=== PATIENT | male | born 1955 | race Caucasian/White ===

== ENCOUNTER 2020-08-19 10:38 | Day surgery (SDC) | payer MEDICARE ==
[~2020-08-19] VITALS: Ht 177.8 cm; Wt 100.0 kg
--- NOTE | ~2020-08-19 | HEMODYNAMI ---
PATIENT:JUAN M ALEJANDRO MEDICAL RECORD: [id number] : 57 [facility] [id number] ADMISSION DATE: 08/19/20 Generatedon:08/19/202016:30 Patient name: JUAN M ALEJANDRO Patient #: [id number] SSN: : 1955 Date of study: 08/19/2020 Page: Of Hemodynamic Procedure Report Patient Data Patient Demographics Procedure consent was obtained First Name: JUAN M Gender: Male Last Name: FLAVIA : 1955 Middle Initial: MIKE Age: 64 year(s) Patient #: [id number] Race: Unknown Additional ID: [id number] Contact details [address]: [address] [place] [address] State: [place] City: [place] Zip code: [address] Admission Admission Data Admission Date: 08/19/2020 Admission Time: 10:38 Procedure Procedure Types Cath Procedure Peripheral Cath Diagnostic Procedure Abd/Extremity Extremities Procedure Description Procedure Date Procedure Date: 08/19/2020 Procedure Start Time: 13:43 Procedure Staff Name Function Dayne Gomez MD Performing Physician Santy Ashraf RT Monitor ELIO COMBS RT Scrub Itzel Pineda CRNA Additional personnel Naomy BENAVIDEZ RN Nurse Nat East RN Nurse Procedure Data Cath Procedure Fluoroscopy Diagnostic fluoroscopy Total fluoroscopy Time: time: 21.9 min 21.9 min Diagnostic fluoroscopy Total fluoroscopy dose: 481 dose: 481 mGy mGy Contrast Material Contrast Material Type Amount (ml) Isovue 300 140 Procedure Medications Medication Administration Route Dosage Heparin Flush Bag added to field 3 bags (1000units/500ml NS) Lidocaine 1% added to field 20 Heparin Bolus I.V. 5000 units Refer to Anesthesia Notes for Sedation Medications Radial Cocktail added to field 1 syringe (Verapamil 2mg/Nitro 400mcg/Heparin 1500units) Nitroglycerin IC/IA I.A. 300 mcg Heparin Bolus I.V. 1000 units Hemodynamics Rest Pre Cath Intra NCS Post Cath Medications Time Medication Route Dose Verified Delivered Reason Notes Ef fectiveness by by 14:28:26 Heparin Flush added 3 bags Dayne Oscar used for Bag to Patricia Gomez MD procedure (1000units/500ml field AMADOR NS) 14:28:36 Lidocaine 1% added 20ml Dayne Oscar for local to vial Patricia Gomez MD anesthetic field AMADOR 14:28:51 Heparin Bolus I.V. 5000 Dayne Johns Per units Cruzito Gomez RN physician 14:29:04 Refer to Dayne Johns Anesthesia Notes Cruzito Gomez RN for Sedation MD Medications 14:38:52 Radial Cocktail added 1 Dayne Oscar (Verapamil to syringe Patricia Gomez MD 2mg/Nitro field AMADOR 400mcg/Heparin 1500units) 15:21:24 Nitroglycerin I.A. 300 mcg Dayne Osacr IC/IA Patricia Gomez MD MD 15:21:36 Heparin Bolus I.V. 1000 Dayne Johns Per units Cruzito Gomez RN physician Procedure Log Time Note 13:07:55 Itzel Pineda CRNA present and monitoring patient for TIVA. 13:08:11 Naomy BENAVIDEZ RN sent for patient. Start room use. 13:08:13 Time tracking: Regular hours (M-F 7:00 - 5:00) 13:08:18 Plan of Care:Hemodynamics will remain stable., Cardiac rhythm will remain stable., Comfort level will be maintained., Respiratory function will remain adequate., Patient/ family verbilizes understanding of procedure., Procedure tolerated without complication., Recovers from procedure without complications.. 13:08:23 Patient received from Outpatients to IR Alert and oriented. Tansferred to table in Supine position. 13:08:27 Signed procedure consent form obtained from patient. 13:08:28 Correct patient and procedure confirmed by team. 13:08:28 ECG and BP/O2 sat monitors applied to patient. 13:08:30 Full Disclosure recording started 13:08:31 - 13:08:59 SEE ANESTHESIA NOTE FOR PRE PROCEDURE ANESTHESIA 13:09:00 - 13:09:14 H&P Date Dictated: 08/19/2020 H&P Addendum completed by physician on day of procedure. (MUST COMPLETE FOR ALL OUTPATIENTS). 13:09:14 Pre-procedure instructions explained to patient. 13:09:15 Pre-op teaching completed and patient verbalized understanding. 13:09:25 Bilateral groins area was prepped with chlora-prep and draped in steril e fashion 13:09:33 Left Pedal was prepped with chlora-prep and draped in sterile fashion. 13:09:35 Sharps counted by scrub and verified by R.N. 13:09:35 Alarms reviewed by R. N. 13:10:01 Use device set IR Diagnostic 13:10:02 ACIST Syringe (27613) opened to sterile field. 13:10:03 ACIST Hand Control (24209) opened to sterile field. 13:10:03 ACIST Manifold (27310) opened to sterile field. 13:10:03 Bag Decanter (2002S) opened to sterile field. 13:10:04 Sterile Angiographic Pack opened to sterile field. 13:10:22 Tegaderm 4 x 4 (1626W) opened to sterile field. 13:42:14 3b) 30-44 Moderately reduced kidney function. 13:42:35 Maximum allowable contrast dose (3.7 X eGFR X 0.75)113.77 ml. 13:42:37 Physician arrived 13:42:38 --------ALL STOP TIME OUT------ 13:42:38 Final Timeout: patient, procedure, and site verified with staff and physician. All members of the team are in agreement. 13:42:40 Bilateral groins site verified by team. 13:42:44 Fire Safety Assessment: A--An alcohol-based skin anteseptic being used preoperatively., C--Open oxygen or nitrous oxide is being used. 13:42:50 Sedation plan: General Anesthesia Medication:General Anesthesia 13:43:18 Procedure started. 13:43:26 Local anesthetic to right femoral artery with Lidocaine 1% by Dayne Gomez MD.INITIAL ACCESS ONLY 14:13:44 Micropuncture VSI 4FR kit opened to sterile field. 14:13:44 DOC .035 wire (Y63849) opened to sterile field. 14:13:44 Angiodynamics Omniflush 5Fr 65cm (37059601) opened to sterile field. 14:13:45 SHEATH 5FR Spencer (QOB196) opened to sterile field. 14:13:45 TUBING Contrast Injection High Pressure (OUD972V) opened to sterile field. 14:13:46 AMPLATZ Super Stiff 75cm wire ([id number]) opened to sterile field. 14:13:46 GLIDE WIRE ANGLE 260cm (ST3443) opened to sterile field. 14:13:46 GLIDE CATHETER 5FR ANGLED 65cm (CG507) opened to sterile field. 14:13:49 SHEATH 6FR Destination (RSR01) opened to sterile field. 14:14:35 HEADLEY 180cm wire (K11744) opened to sterile field. 14:20:21 AMPLATZ Super stiff 180cm wire ([id number]) opened to sterile field. 14:20:21 SHEATH 6FR Spencer (ORL888) opened to sterile field. 14:21:29 SHEATH 6FR X 25CM RADIOPAUQE PINNICALE (XKS292) opened to sterile field . 14:23:59 CXI Catheter 90cm (V47186) opened to sterile field. 14:28:26 Heparin Flush Bag (1000units/500ml NS) 3 bags added to field was administered by Dayne Gomez MD; used for procedure; Verbal order read back and verified. 14:28:36 Lidocaine 1% 20ml vial added to field was administered by Dayne Gomez MD; for local anesthetic; Verbal order read back and verified. 14:28:44 CHOICE PT Extra Support J 300cm guide wire ([id number]) opened to steril e field. 14:28:44 INFLATOR BasixTOUCH (XU3925) opened to sterile field. 14:28:51 Heparin Bolus 5000 units I.V. was administered by Nat East RN; Per physician; Verbal order read back and verified. 14:29:04 Refer to Anesthesia Notes for Sedation Medications was administered by Nat East RN; ; Verbal order read back and verified. 14:31:32 Inflate balloon Inflation number: 1 A NANOCROSS ELITE 3 X 60 ([id number] was prepped and advanced across the Undefined1 , then inflated to 9 EDGAR for 0:03 (min:sec) . 14:33:39 Hawkone Medium Atherectomy System (H1-M) opened to sterile field. 14:38:52 Radial Cocktail (Verapamil 2mg/Nitro 400mcg/Heparin 1500units) 1 syring e added to field was administered by Dayne Gomez MD; ; Verbal order read back and verified. 14:51:49 Inflate balloon Inflation number: 2 A IN.PACT Admiral 5 x 80 x 130 DCB Balloon ([id number]) was prepped and advanced across the Undefined1 , then inflated to 8 EDGAR for 2:37 (min:sec) . 15:03:55 Inflate balloon Inflation number: 3 A HOCOLATE 5.0 x 80 x 120 balloon ([id number]) was prepped and advanced across the Undefined1 , then inflated to 9 EDGAR for 1:53 (min:sec) . 15:07:13 Inflate balloon Inflation number: 4 A NANOCROSS ELITE 3 X 120 ([id number]) was prepped and advanced across the Undefined1 , then inflated to 14 EDGAR for 0:04 (min:sec) . 15:14:00 CHOICE PT Extra Support J 300cm guide wire ([id number]) opened to steril e field. 15:15:54 Inflate balloon Inflation number: 5 A NANOCROSS ELITE 3 X 150 ([id number]) was prepped and advanced across the Undefined1 , then inflated to 8 EDGAR for 0:01 (min:sec) . 15:21:24 Nitroglycerin IC/IA 300 mcg I.A. was administered by Dayne Gomez MD; ; Verbal order read back and verified. 15:21:36 Heparin Bolus 1000 units I.V. was administered by Nat East RN; Per physician; Verbal order read back and verified. 15:28:56 Navicross Support Straight .035 150cm catheter (BJ69683) opened to sterile field. 15:31:01 GUIDEWIRE V-18 CONTROL ([id number]) opened to sterile field. 15:35:02 CXI SUPPORT .035 135 CM STR catheter (X60564) opened to sterile field. 15:41:40 Inflate balloon Inflation number: 6 A NANOCROSS ELITE 2.5MM-2 MM X 210 X 150 ([id number]) was prepped and advanced across the Undefined1 , then inflated to 14 EDGAR for 0:40 (min:sec) . 16:06:29 EVERFLEX 6 x 60 x 120 Stent ([id number]) was deployed across Undefined1 . 16:06:53 STENT WITHIN EXPIRATION CHECKED BEFORE OPENING WITH STAFF 16:11:01 Inflate balloon Inflation number: 7 A NANOCROSS ELITE 6 X 60 ([id number] was prepped and advanced across the Undefined1 , then inflated to 14 EDGAR for 0:07 (min:sec) . 16:21:11 EXOSEAL 6Fr (EX600) opened to sterile field. 16:22:51 Procedure ended.(Physican Out) 16:23:02 Fluoroscopy time 21.90 minutes. 16:23:11 Fluoroscopy dose: 481 mGy 16:23:11 Flurop Dose total: 481 16:24:36 Insertion/operative site no bleeding no hematoma. 16:24:40 Post-op/insertion site Left Femoral artery dressed using a 4 x 4 and Tegaderm. 16:24:45 Post left femerol artery:stable 16:25:08 SEE ANESTHESIA NOTE FOR POST PROCEDURE ANESTHESIA 16:25:34 Contrast amount:Isovue 300 140ml. 16:25:39 Maximum allowable dose exceeded? Yes. 16:29:53 Report given to Recovery Room. 16:29:57 Patient transfered to Recovery Room with Stretcher. Intervention Summary Intervention Notes Time ActionType Lesion and Equipment Used Action# Pressure Duration Attributes 14:31:32 Inflate Undefined1 NANOCROSS ELITE 2 1 9 00:03 balloon X 60 ([id number] 14:51:49 Inflate Undefined1 IN.PACT Admiral 5 2 8 02:37 balloon x 80 x 130 DCB Balloon ([id number]) 15:03:55 Inflate Undefined1 HOCOLATE 5.0 x 80 3 9 01:53 balloon x 120 balloon ([id number]) 15:07:13 Inflate Undefined1 NANOCROSS ELITE 3 4 14 00:04 balloon X 120 ([id number]) 15:15:54 Inflate Undefined1 NANOCROSS ELITE 3 5 8 00:01 balloon X 150 ([id number]) 15:41:40 Inflate Undefined1 NANOCROSS ELITE 6 14 00:40 balloon 2.5MM-2 MM X 210 X 150 ([id number]) 16:06:29 Deploy self Undefined1 EVERFLEX 6 x 60 x 1 expanding 120 Stent stent ([id number]) 16:11:01 Inflate Undefined1 NANOCROSS ELITE 2 7 14 00:07 balloon X 60 ([id number] Device Usage Item Name Manufacture Quantity Catalog Number [facility] Part Cur rent Minimal Lot# / Charge Number Stock Stock Serial# Code ACIST Syringe Acist Medical 1 29046 093562 444290 985 456 20 (29621) Systems Inc ACIST Hand Acist Medical 1 19093 621911 209948 985 887 5 Control (82300) Systems Inc ACIST Manifold Acist Medical 1 53487 174453 948934 985 903 5 (02181) Systems Inc Bag Decanter Microtek 1 2001S 162579 32942 983 745 5 (2001S) Medical Inc. Sterile Cardinal 1 [id number] 350100 997 728 5 Angiographic Pack Health Tegaderm 4 x 4 3M 1 1626W 091048 479806 989 622 5 (1626W) Micropuncture VSI VSI VASCULAR 1 7266V 890106 999 120 5 4FR kit SOLUTIONS DOC .035 wire Cook Medical 1 Q31737 027017 999 313 5 (X26771) Angiodynamics Angiodynamics 1 37410899 129854 662351 999 872 5 Omniflush 5Fr 65cm (90424970) SHEATH 5FR Terumo 1 RCG335 267704 385729 993 565 5 Spencer (TPP730) TUBING Contrast [facility] Medical 1 LYH930W 864242 485896 999 284 5 Injection High Pressure (ATH300H) AMPLATZ Super [place] 1 [id number] 595780 216862 999 814 5 [id number] Stiff 75cm wire Scientific ([id number]) GLIDE WIRE ANGLE Terumo 1 XH8064 718979 638749 999 344 5 260cm (FM1799) GLIDE CATHETER Terumo 1 CG507 570321 999 575 5 5FR ANGLED 65cm (CG507) SHEATH 6FR Terumo 1 RSR01 656095 81766 999 466 5 Destination (RSR01) HEADLEY 180cm wire Cook Medical 1 X97670 229207 999 892 5 (N89058) AMPLATZ Super [place] 1 [id number] 909492 831449 999 855 5 stiff 180cm wire Scientific ([id number]) SHEATH 6FR Terumo 1 VSG566 930428 141586 994 597 40 Spencer (UUJ260) SHEATH 6FR X 25CM Terumo 1 BFX403 320765 550434 999 993 1 RADIOPAUQE PINNICALE (CII882) CXI Catheter 90cm Sandata 1 A58885 044683 061812 999 865 5 [id number] (A84112) CHOICE PT Extra [place] 2 [id number] 239794 464650 998 758 5 [id number] Support J 300cm Scientific [id number] guide wire (8688519G7) INFLATOR [facility] Solidia Technologies 1 KW3184 769295 174020 999 572 5 BasixTOUCH (NZ4865) NANOCROSS ELITE 2 Medtronic 2 [id number] 751314 10039 999 994 1 X 60 ([id number] Hawkone Medium Medtronic 1 H1-M 939485 999 13414 5 [id number] Atherectomy System (H1-M) IN.PACT Admiral 5 Medtronic 1 [id number] 350388 903848 999 980 5 [id number] x 80 x 130 DCB Balloon ([id number]) CHOCOLATE 5.0 x Medtronic 1 [id number] O 225594 02394 999 992 5 80 x 120 balloon TW ([id number]) NANOCROSS ELITE 3 Medtronic 1 [id number] 938502 993540 999 996 1 [id number] X 120 ([id number]) NANOCROSS ELITE 3 Medtronic 1 [id number] 729191 77158 999 992 1 X 150 ([id number]) Navicross Support Terumo 1 FR75402 935520 188298 999 972 5 Straight .035 150cm catheter (PR62880) GUIDEWIRE V-18 [place] 1 366126 217962 999 993 1 [id number] CONTROL Scientific ([id number]) CXI SUPPORT .035 Cook Medical 1 T23491 213270 509750 999 746 5 96945249 135 CM STR catheter (T08561) NANOCROSS ELITE Medtronic 1 [id number] 386822 999 984 1 2.5MM-2 MM X 210 X 150 ([id number]) EVERFLEX 6 x 60 x Medtronic 1 [id number] 150669 042522 999 989 5 [id number] 120 Stent P145864 ([id number]) EXOSEAL 6Fr Cardinal 1 EX600 450476 189316 995 662 10 30840078 (EX600) Health Signature Audit [place] Stage Time Signature Unsigned Intra-Procedure 08/19/2020 Santy 4:30:20 PM [place] RT (R) (CV) [facility] [address] [place] [address]
[2020-08-19 10:56] LABS: BASOPHILS 0.5 % (0-2); EOSINOPHILS 4.4 % (0-7); HEMATOCRIT 42.6 % (42.0-54.0); HEMOGLOBIN 14.8 g/dL (13.5-17.5); IMMATURE GRANULOCYTES 0.1 % (0-5); LYMPHOCYTES 34.7 % (15-50); MCH 30.9 pg (26.0-34.0); MCHC 34.7 g/dL (31.0-37.0); MCV 88.9 fL (80.0-100.0); MEAN PLATELET VOLUME 9.9 fL (7.4-10.4); MONOCYTES 7.2 % (2-11); NEUTROPHILS 53.1 % (40-80); PLATELET COUNT 234 10x3/uL (130-400); RBC 4.79 10x6/uL (4.20-6.10); RDW 13.5 % (11.5-14.5); WBC 9.2 10x3/uL (4.8-10.8)
[2020-08-19 11:06] LABS: ANION GAP 13.2 mmol/L (8-16); CALCIUM 9.1 mg/dL (8.5-10.1); CARBON DIOXIDE 25.9 mmol/L (21.0-32.0); CREATININE - SERUM 1.8 mg/dL (0.6-1.3); POTASSIUM - SERUM 4.1 mmol/L (3.5-5.1)
[2020-08-19] MEDS ORDERED: NEURONTIN800 MG PO (11:21)
[2020-08-19] MEDS ORDERED: LIPITOR20 MG PO (11:22)
[2020-08-19] MEDS ORDERED: BAYER CHEWABLE81 MG PO (11:22)
[2020-08-19] MEDS ORDERED: HYDROCODON-ACE1 EA10 PO (11:24)
[2020-08-19 11:28] LABS: INR 1.03 (0.85-1.17); PROTIME 13.5 SECONDS (11.6-15.0)
[2020-08-19 11:29] LABS: APTT 39.4 SECONDS (22.8-39.4)
[2020-08-19 11:40] VITALS: BP 151/80; Ht 177.8 cm; Wt 100.0 kg
--- NOTE | 2020-08-19 17:22 | NUR ---
1722 SEE POST PROCEDURE CHECKLIST FOR VITAL SIGN TRENDS.
--- NOTE | 2020-08-19 17:40 | NUR ---
1735 HOB AT 30 DEGREES, ICE PACKS TO JOSEPH SOFT GROINS, CDI. EATING FINGER FOOD AHA DIET. DRINKING LIQUIDS.
--- NOTE | 2020-08-19 18:46 | NUR ---
184 HAS RETURNED TO ROOM, I REPORTED TO HER WHAT DR. DENG REPORTED TO HER SPOUSE. BED LOWERED FOR COMFORT FOR PT AND LIGHTS OUT FOR PT. FOR COMFORT. PT. WISHES TO NAP.
== END 2020-08-19 19:50 | disposition home or self-care (01) ==
LOC: D.SP 10:38 → D.RAD 13:00 → D.SP 13:00
PROVIDERS: ATTEND General Practice
DX: I70.203 Unspecified atherosclerosis of native arteries of extremities, bilateral legs (principal)

== ENCOUNTER → 2021-04-09 12:55 | Outpatient (CLI) | payer MEDICARE ==
[2020-08-19 11:40] VITALS: BMI 31.6
[~2021-04-09 12:55] MED LIST: BAYER CHEWABLE81 MG PO; HYDROCODON-ACE1 EA10 PO; LIPITOR20 MG PO; NEURONTIN800 MG PO
== END | disposition home or self-care (01) ==
LOC: D.CT 12:55
PROVIDERS: ATTEND General Practice
DX: I70.213 Atherosclerosis of native arteries of extremities with intermittent claudication, bilateral legs (principal)

== ENCOUNTER → 2021-04-18 10:30 | Day surgery (SDC) | payer MEDICARE ==
[~2021-04-18] VITALS: Ht 177.8 cm; Wt 106.8 kg
[~2021-04-18 10:30] MED LIST changes: +GLIMEPIRIDE2 MG PO
[2021-04-18 10:50] LABS: BASOPHILS 0.6 % (0-2); EOSINOPHILS 3.3 % (0-7); HEMATOCRIT 41.7 % (42.0-54.0); HEMOGLOBIN 14.1 g/dL (13.5-17.5); LYMPHOCYTES 34.9 % (15-50); MCH 30.1 pg (26.0-34.0); MCHC 33.9 g/dL (31.0-37.0); MCV 88.8 fL (80.0-100.0); MEAN PLATELET VOLUME 8.8 fL (7.4-10.4); MONOCYTES 5.6 % (2-11); NEUTROPHILS 55.6 % (40-80); PLATELET COUNT 228 10x3/uL (130-400); RDW 13.8 % (11.5-14.5); WBC 9.5 10x3/uL (4.8-10.8)
[2021-04-18 10:54] LABS: ANION GAP 10.4 mmol/L (8-16); CALCIUM 9.1 mg/dL (8.5-10.1); CARBON DIOXIDE 28.6 mmol/L (21.0-32.0); CREATININE - SERUM 1.4 mg/dL (0.6-1.3); INR 1.08 (0.85-1.17); PROTIME 12.9 SECONDS (11.6-15.0)
[2021-04-18 10:55] LABS: APTT 33.3 SECONDS (22.8-39.4)
[2021-04-18 11:25] VITALS: BP 140/82; Ht 177.8 cm; Wt 106.8 kg
== END | disposition home or self-care (01) ==
LOC: D.SP 10:30 → D.RAD 13:00 → D.SP 13:00 → D.RAD 14:00 → D.SP 14:00
PROVIDERS: ATTEND General Practice
DX: R79.89 Other specified abnormal findings of blood chemistry (principal); I73.9 Peripheral vascular disease, unspecified; Z53.9 Procedure and treatment not carried out, unspecified reason

== ENCOUNTER → 2021-04-23 10:07 | Outpatient (CLI) | payer MEDICARE ==
[2021-04-18 11:25] VITALS: BMI 33.7
== END | disposition home or self-care (01) ==
LOC: D.HCCARDIO 10:07
PROVIDERS: ATTEND Internal Medicine Cardiovascular Disease
DX: R07.9 Chest pain, unspecified (principal)

== ENCOUNTER 2021-05-01 06:34 | Day surgery (SDC) | payer MEDICARE ==
[~2021-05-01] VITALS: Ht 177.8 cm; Wt 106.7 kg
--- NOTE | ~2021-05-01 | HP ---
PATIENT: JUAN M ALEJANDRO MEDICAL RECORD: [id number] ACCOUNT: [id number] LOCATION:[facility] : 57 ADMISSION DATE: 05/01/21 PCP: EZRA SEGUNDO DO HISTORY AND PHYSICAL EXAMINATION HISTORY OF PRESENT ILLNESS: A 65-year-old gentleman with history of hypertension, hyperlipidemia, angina, presented with anginal symptomology, underwent Cardiolite stress testing. This showed a large previous defect as well as reversibility along the lateral wall. EF was decreased as well. He was brought to the warehouse general laborer for further delineation of anatomy. PAST MEDICAL HISTORY: 1. History of hypertension. 2. Hyperlipidemia. 3. Diabetes mellitus. PHYSICAL EXAMINATION: GENERAL: Pleasant. No acute distress, appeared stated age. HEENT: Normocephalic, atraumatic. NECK: No JVD, no carotid bruit. CARDIOVASCULAR: Heart is regular. LUNGS: Castellanos clear. EXTREMITIES: Pulses 2+ with no edema. IMPRESSION: High risk anatomy via noninvasive studies. PLAN: For angiography and intervention based on the above. TRANSINT:[id number] Voice Confirmation ID: [id number] DOCUMENT ID: [id number] ANDREAS HODGE MD CC: [id number] DICTATION DATE: 05/01/21805 CRAS: 05/01/21 0827 [facility] [address] [place] [id number]
--- NOTE | ~2021-05-01 | OP ---
PATIENT NAME: JUAN M ALEJANDRO MEDICAL RECORD: [id number] :57 LOCATION:D.CAT ADMISSION DATE: SURGEON: ANDREAS HODGE MD DATE OF OPERATION: 05/01/2021 PROCEDURE PERFORMED: Left heart catheterization, selective coronary angiography, right femoral artery approach. CATHETERS: A 5-German sheath, 5/4 left and right Zac, 5/4 pig. The procedure was well tolerated. The patient was returned to the [facility]. Sheath removed. TR band was placed. FINDINGS: Left ventriculography in 30-degree LIM view shows a marked lateral hypokinesis. Overall function reduced at 30% to 35%. CORONARY ANATOMY: Left main: Left main is free of disease. LAD: Has a diffuse stenosis of about 90% in its mid portion. Circumflex: Totally occluded, fills well via left to right collaterals. Right coronary artery: Totally occluded, fills well via left to right collaterals. IMPRESSION: Decreased left ventricular systolic function. Severe 3-vessel disease. Circ and right are fair targets. We will discuss with Dr. Chong. We will start on myopathic medications, best route for revascularization. Further recommendations based on the above. TRANSINT:[id number] Voice Confirmation ID: [id number] DOCUMENT ID: [id number] ANDREAS HODGE MD CC: [id number] DICTATION DATE: 05/01/21827 REAL PROPERTY EVALUATOR: 05/01/21 0941 [facility] [address] [place] [address]
--- NOTE | ~2021-05-01 | HEMODYNAMI ---
PATIENT:JUAN M ALEJANDRO MEDICAL RECORD: [id number] : 57 LOCATION:[facility] ADMISSION DATE: 05/01/21 Generatedon:18:29 Patient name: JUAN M ALEJANDRO Patient #: [id number] SSN: : 1955 Date of study: 05/01/2021 Page: Of Hemodynamic Procedure Report Patient Data Patient Demographics Procedure consent was obtained First Name: JUAN M Gender: Male Last Name: FLAVIA : 1955 Middle Initial: MIKE Age: 65 year(s) Patient #: [id number] Race: Unknown Additional ID: [id number] Contact details Address: [address] [place] [address] State: [place] City: [place] Zip code: [address] Admission Admission Data Admission Date: 05/01/2021 Admission Time: 6:34 Admit Source: Other Height (in.): 69.69 BSA: 2.22 (m2) Height (cm.): 177 BMI: 33.83 (kg/m2) Weight (lbs.): 233.69 Weight (kg.): 106 Current Diagnosis Diagnosis Description Stable angina Lab Results Lab Result Date: 05/01/2021 Lab Result Time: 0:00 Biochemistry Name Units Result Min Max BUN mg/dl 14 --(--*-)-- 7 18 Creatinine mg/dl 1.3 --(---*)-- 0.6 1.3 CBC Name Units Result Min Max Hemoglobin g/dl 14.6 --(-*--)-- 13.5 17.5 Procedure Procedure Types Cath Procedure Diagnostic Procedure LHC LHC w/Coronaries Procedure Description Procedure Date Procedure Date: 05/01/2021 Procedure Start Time: 8:13 Procedure End Time: 8:26 Procedure Staff Name Function Daniel Woodson MD Performing Physician Best Hernandez RN Nurse Domenic Cobb RN Nurse Sandy Donaldson RT Scrub Johnny Sutton RT Monitor Procedure Data Cath Procedure Fluoroscopy Diagnostic fluoroscopy Total fluoroscopy Time: 3.3 time: 3.3 min min Diagnostic fluoroscopy Total fluoroscopy dose: 709 dose: 709 mGy mGy Contrast Material Contrast Material Type Amount (ml) Isovue 370 73 Entry Location Entry Primary Successful Side Size Upsize Upsize Entry Closure Murphy ccessful Closure Location (Fr) 1 (Fr) 2 (Fr) Remarks Device Remarks Radial Right 6 Fr Mechanical artery Short Compression Estimated blood loss: 5 ml Diagnostic catheters Device Type Used For End Catheter Placement DIAGNOSTIC [place] 110cm 5 LV Angiography Fr catheter ([id number]) DIAGNOSTIC AR MOD 5Fr Right Coronary Catheter ([id number]) Angiography Procedure Complications No complications Procedure Medications Medication Administration Route Dosage Oxygen etCO2 Nasal cannula 2 l/min Lidocaine 2% added to field 20 Heparin Flush Bag added to field 2 bags (1000units/500ml NS) 0.9% NaCl I.V. 100 ml/hr Radial Cocktail added to field 1 syringe (Verapamil 2mg/Nitro 400mcg/Heparin 1500units) Versed I.V. 1 mg Fentanyl I.V. 50 mcg Versed I.V. 0.5 mg Fentanyl I.V. 25 mcg Hemodynamics Rest BSA: 2.22 (m2) HGB: 14.6 (g/dl) O2 Consumption: Estimated: 262.11 (ml/min) O2 Co nsumption indexed: Estimated:118.07 (ml/min/m) Heart Rate: 73 (bpm) Pressure Samples Time Site Value (mmHg) Purpose Heart Use Rate(bpm) 8:15 LV 155/18,18 EDP 78 Gradients Valve Time Site Site Mean SEP/DFP Peak To Heart Use 1 2 (mmHg) (sec/min) Peak Rate (mmHg) (bpm) Aortic 8:16 LV AO 83 Snapshots Pre Cath Intra NCS Post Cath Vital Signs Time Heart Resp SPO2 etCO2 NIBP (mmHg) Rhythm Pain Sedation Rate (ipm) (%) (mmHg) Status Level (bpm) 7:59:13 75 16 100 27 175/95(140) NSR 0 (11) 10(A) , No pain 8:03:39 74 18 100 29.2 169/103(140) NSR 0 (11) 10(A) , No pain 8:08:01 75 18 96 0 155/93(128) NSR 0 (11) 10(A) , No pain 8:12:19 78 19 95 14.2 151/93(122) NSR 0 (11) 10(A) , No pain 8:16:29 83 20 93 0.7 125/82(104) NSR 0 (11) 9(A) , No pain 8:20:41 88 20 92 27.7 130/83(102) NSR 0 (11) 9(A) , No pain 8:24:55 82 20 93 9.7 130/84(102) NSR 0 (11) 10(A) , No pain Medications Time Medication Route Dose Verified Delivered Reason Notes Effectiveness by by 7:58:27 Oxygen etCO2 2 l/min Daniel Domenic used for Nasal [facility] Dayne Cobb RN procedure cannula 7:58:34 Lidocaine 2% added 20ml Daniel Daniel for local to vial [facility] anesthetic field MD AMADOR 7:58:41 Heparin Flush added 2 bags Daniel Daniel used for Bag to [facility] procedure (1000units/500ml field MD AMADOR NS) 7:58:51 0.9% NaCl I.V. 100 Daniel Domenic Per ml/hr [facility] Dayne Cobb RN physician 7:59:22 Radial Cocktail added 1 Daniel Daniel for (Verapamil to syringe [facility] vasodilation 2mg/Nitro field MD AMADOR 400mcg/Heparin 1500units) 8:07:53 Versed I.V. 1 mg Daniel Domenic for sedation [facility] Dayne Cobb RN, MD 8:07:59 Fentanyl I.V. 50 mcg Daniel Domenic for sedation [facility] Dayne Cobb RN, MD 8:13:03 Versed I.V. 0.5 mg Daniel Domenic for sedation [facility] Dayne Cobb RN, MD 8:13:08 Fentanyl I.V. 25 mcg Daniel Domenic for sedation [facility] Dayne Cobb RN, MD Procedure Log Time Note 7:42:25 Admit Source: Other 7:49:29 Best Hernandez RN sent for patient. Start room use. 7:50:59 Risk of Mortality: .1% 7:57:38 Time tracking: Regular hours (M-F 7:00 - 5:00) 7:57:41 Plan of Care:Hemodynamics will remain stable., Cardiac rhythm will remain stable., Comfort level will be maintained., Respiratory function will remain adequate., Patient/ family verbilizes understanding of procedure., Procedure tolerated without complication., Recovers from procedure without complications.. 7:57:45 Patient received from Pre/Post Procedure Room to CCL 1 Alert and oriented. Tansferred to table in Supine position. 7:57:46 Warm blankets applied, and jamilah hugger turned on for patient comfort. 7:57:47 Signed procedure consent form obtained from patient. 7:57:54 Correct patient and procedure confirmed by team. 7:57:54 ECG and BP/O2 sat monitors applied to patient. 7:57:55 Vital chart was started 7:57:57 Rhythm: sinus rhythm 7:58:00 Full Disclosure recording started 7:58:27 Oxygen 2 l/min etCO2 Nasal cannula was administered by Domenic Cobb RN; used for procedure; Verbal order read back and verified. 7:58:34 Lidocaine 2% 20ml vial added to field was administered by Daniel Woodson MD; for local anesthetic; Verbal order read back and verified. 7:58:41 Heparin Flush Bag (1000units/500ml NS) 2 bags added to field was administered by Daniel Woodson MD; used for procedure; Verbal order read back and verified. 7:58:51 0.9% NaCl 100 ml/hr I.V. was administered by Domenic Cobb RN; Per physician; Verbal order read back and verified. 7:59:22 Radial Cocktail (Verapamil 2mg/Nitro 400mcg/Heparin 1500units) 1 syringe added to field was administered by Daniel Woodson MD; for vasodilation; Verbal order read back and verified. 8:04:28 Baseline sample Acquired. 8:04:36 H&P Date Dictated: 05/01/2021 H&P Addendum completed by physician on day of procedure. (MUST COMPLETE FOR ALL OUTPATIENTS). 8:04:37 Pre-procedure instructions explained to patient. 8:04:37 Pre-op teaching completed and patient verbalized understanding. 8:04:39 Family in patients room. 8:04:41 Patient NPO since Midnight. 8:04:58 Is the patient allergic to Iodine/contrast media? No. 8:05:01 Was the patient premedicated? No 8:05:02 Is patient on blood thinner?Yes 8:05:32 Patient diabetic? Yes. 8:05:33 If diabetic: On Metformin? Yes 8:05:35 ----Pre-sedation anethsthesia assessment.---- 8:05:38 Previous problem with sedation/anesthesia? No ? 8:05:39 Snore? Yes 8:05:41 Sleep apnea? No 8:05:42 Deviated septum? No 8:05:50 Opens mouth fully? Yes 8:05:52 Sticks out tongue? Yes 8:05:54 Airway obstruction? No ? 8:05:57 Dentures? No ? 8:06:07 Pre procedure: left dorsailis pedis pulse 1+ Palpable, but thready & weak; easily obliterated 8:06:15 Pre procedure: right radial pulse 2+ Normal; easily identifiable; not easily obliterated 8:06:19 Modified Bull's test Ulnar < 7 seconds 8:06:21 Patient pain scale 0/10 ?. 8:06:28 IV patent on arrival in left antecubital with 0.9% NaCl at [facility]. 8:07:06 Lab Result : BUN 14 mg/dl 8:07:06 Lab Result : Creatinine 1.3 mg/dl 8:07:06 Lab Result : Hemoglobin 14.6 g/dl 8:07:13 Risk of blood transfusion: 0.4 8:07:18 Risk of BRI: 0.8 8:07:23 Right Radial & Left Groin area was prepped with chlora-prep and draped in sterile fashion 8:07:28 Alarms reviewed by R. N. 8:07:28 Sharps counted by scrub and verified by R.N. 8:07:30 Physician arrived 8:07:31 --------ALL STOP TIME OUT------ 8:07:32 Final Timeout: patient, procedure, and site verified with staff and physician. All members of the team are in agreement. 8:07:34 Right Radial & Left Groin site verified by team. 8:07:39 Fire Safety Assessment: A--An alcohol-based skin anteseptic being used preoperatively., B--The operative or invasive procedure is being performed above the xiphoid process or in the oropharynx., C--Open oxygen or nitrous oxide is being used., D--An ESU, laser, or fiber-optic light is being used., E--There are other possible contributors. 8:07:43 Physical assessment completed. ASA score P 2 - A patient with mild systemic disease as per Daniel Woodson MD. 8:07:53 Versed 1 mg I.V. was administered by Domenic Cobb RN; for sedation; Verbal order read back and verified. 8:07:53 3a) 45-59 Moderately reduced kidney function. 8:07:59 Fentanyl 50 mcg I.V. was administered by Domenic Cobb RN; for sedation; Verbal order read back and verified. 8:08:12 Maximum allowable contrast dose (3.7 X eGFR X 0.75)163 ml. 8:08:18 Sedation plan: IV Moderate Sedation Medication:Versed, Fentanyl 8:08:25 Use device set Radial Dx or PCI 8:08:28 ACIST Syringe (69774) opened to sterile field. 8:08:29 Medline Cath Pack ([id number]) opened to sterile field. 8:08:29 Bag Decanter (2002S) opened to sterile field. 8:08:30 ACIST Hand Control (61514) opened to sterile field. 8:08:30 ACIST Manifold (54810) opened to sterile field. 8:08:31 Tegaderm 4 x 4 (1626W) opened to sterile field. 8:08:32 MBrace Wrist Support ([id number]) opened to sterile field. 8:08:35 EMERALD Guide Wire (551-118) opened to sterile field. 8:08:38 SHEATH 6FR RAIN ([id number]) opened to sterile field. 8:13:03 Versed 0.5 mg I.V. was administered by Domenic Cobb RN; for sedation; Verbal order read back and verified. 8:13:08 Fentanyl 25 mcg I.V. was administered by Domenic Cobb RN; for sedation; Verbal order read back and verified. 8:13:28 Procedure started. 8:13:35 Local anesthetic to right radial artery with Lidocaine 2% by Daniel Woodson MD.INITIAL ACCESS ONLY 8:13:49 A 6 Fr Short sheath was inserted into the Right Radial artery 8:14:00 Zero performed for pressure channel P1 8:14:28 A DIAGNOSTIC [place] 110cm 5 Fr catheter ([id number]) was advanced over the wire and used for LV Angiography. 8:15:35 LV angiography performed. 8:15:39 LV gram done using LIM 8:16:04 EF : 30 % 8:16:05 LV hemodynamics recorded. 8:16:08 Injector settings: Ml/sec: 5, Volume: 15, 8:16:14 LCA angiography performed. 8:19:01 Catheter exchanged over wire. 8:19:45 A DIAGNOSTIC AR MOD 5Fr Catheter ([id number]) was advanced over the wire and used for Right Coronary Angiography. 8:19:53 RCA angiography performed. 8:23:06 Catheter removed. 8:23:23 Sheath removed intact; hemostasis achieved with Mechanical Compression to the Right Radial artery. 8:23:31 Procedure ended.(Physican Out) 8:23:43 Fluoroscopy time 03.30 minutes. 8:23:49 Fluoroscopy dose: 709 mGy 8:23:49 Flurop Dose total: 709 8:24:00 Dose Area Product 46139 mGy/cm. 8:24:04 Contrast amount:Isovue 370 73ml. 8:24:07 Maximum allowable dose exceeded? No. 8:24:09 Sharps counted by scrub and verified by R.N. 8:24:13 [place] band inflated with 10cc of air. 8:24:15 Insertion/operative site no bleeding no hematoma. 8:24:23 Post right radial artery:stable 8:24:55 Post Procedure Pulses reassessed and unchanged 8:25:00 Post procedure: right radial pulse 2+ Normal; easily identifiable; not easily obliterated. 8:25:03 Post procedure rhythm: unchanged. 8:25:06 Estimated blood loss: 5 ml 8:25:09 Post procedure instruction explained to patient.Patient verbalizes understanding. 8:25:20 Procedure and supply charges have been captured, reviewed, submitted and are correct. 8:25:43 ZEPHYR REGULAR TR BAND (216131) opened to sterile field. 8:26:02 Procedure Complication : No complications 8:26:05 Vital chart was stopped 8:26:12 [facility] Findings: MVD- CABG consult 8:26:17 Operative report dictated upon procedure completion. 8:26:17 See physician's report for complete and final results. 8:26:19 Report given to Pre/Post Procedure Room. 8:26:27 Patient transfered to Pre/Post Procedure Room with Stretcher. 8:26:30 Procedure ended. 8:26:30 Full Disclosure recording stopped 8:26:34 End room use (Document Last) 8:27:29 Patient Height : 69.69 inches 8:27:35 Patient Weight : 233.69 lbs 8:27:41 Current Diagnosis : Stable angina Device Usage Item Name Manufacture Quantity Catalog Hospital Part Current Minima l Lot# / Number Charge Number Stock Stock Serial# Code ACIST Acist 1 00059 392855 830857 103725 20 Syringe Medical (72308) Systems Inc Medline Medline 1 [id number] 202297 13707 097397 5 Cath Pack ([id number]) Bag Microtek 1 2001S 568568 23722 905020 5 Decanter Medical Inc. () ACIST Hand Acist 1 53348 429147 696779 725988 5 Control Medical (68875) Systems Inc ACIST Acist 1 30043 458645 591755 613381 5 Manifold Medical (46394) Systems Inc Tegaderm 4 3M 1 1626W 253891 152923 232081 5 x 4 (1626W) MBrace Advanced 1 140-0250-00 479046 21969 520200 5 Wrist Vascular Support Dynamics ([id number]) EMERALD Cardinal 1 502-455 677006 652636 237177 5 Guide Wire Health (502-455) SHEATH 6FR Cardinal 1 8520775 343041 4252078 762168 5 [facility] (7929643) DIAGNOSTIC Terumo 1 40-7203 940038 905813 127282 5 [place] 110cm 5 Fr catheter (070977) DIAGNOSTIC Cardinal 1 235963T 558287 520584 651620 15 AR MOD 5Fr Health Catheter (086492F) ZEPHYR Cardinal 1 563229 857164 5965666 478196 5 REGULAR TR Health BAND (245061) Signature Audit [place] Stage Time Signature Unsigned Intra-Procedure 05/01/2021 Johnny Sutton RT(R) 8:28:17 AM Intra-Procedure 05/01/2021 Domenic Cobb RN 8:28:46 AM Intra-Procedure 05/01/2021 Daniel Romero 8:29:13 AM Dayne AMAD[place] [id number] [facility] [address]
[2021-05-01] MEDS ORDERED: PLAVIX75 MG PO (06:55)
[2021-05-01 07:16] VITALS: BP 145/86; Ht 177.8 cm; Wt 106.7 kg
[2021-05-01 07:27] LABS: BASOPHILS 0.7 % (0-2); EOSINOPHILS 3.9 % (0-7); HEMATOCRIT 42.6 % (42.0-54.0); HEMOGLOBIN 14.6 g/dL (13.5-17.5); LYMPHOCYTES 34.6 % (15-50); MCH 30.3 pg (26.0-34.0); MCHC 34.3 g/dL (31.0-37.0); MCV 88.3 fL (80.0-100.0); MEAN PLATELET VOLUME 9.1 fL (7.4-10.4); MONOCYTES 7.4 % (2-11); NEUTROPHILS 53.4 % (40-80); PLATELET COUNT 233 10x3/uL (130-400); RBC 4.82 10x6/uL (4.20-6.10); RDW 13.9 % (11.5-14.5); WBC 10.5 10x3/uL (4.8-10.8)
[2021-05-01 07:42] LABS: ANION GAP 10.5 mmol/L (8-16); CARBON DIOXIDE 28.5 mmol/L (21.0-32.0); CREATININE - SERUM 1.3 mg/dL (0.6-1.3); LDL-HDL RATIO 5.1 ratio (1.5-3.5)
--- NOTE | 2021-05-01 08:34 | NUR ---
PT ARRIVED BY STRETCHER. PLACED ON MONITORS. ASSESSMENT COMPLETED. VSS AT THIS TIME. FAMILY AT BEDSIDE. DR. HODGE ROUNDED AND SPOKE WITH PT AND PT'S .
--- NOTE | 2021-05-01 08:48 | NUR ---
PT RESTING COMFORTABLY. VSS AT THIS TIME. CALL LIGHT WITHIN REACH. VSS AT THIS TIME. DENIES NAUSEA/PAIN.
[2021-05-01] MEDS ORDERED: LOSARTAN-HCTZ1 EAC1 PO (09:15)
--- NOTE | 2021-05-01 09:15 | NUR ---
RIGHT WRIST BAND IN PLACE. NO BLEEDING/HEMATOMA NOTED. PT DENIES NAUSEA/PAIN. SET UP WITH SANDWICH TRAY AND DRINK. VSS.
--- NOTE | 2021-05-01 09:30 | NUR ---
2cc OF AIR REMOVED FROM Z BAND. NO BLEEDING/HEMATOMA NOTED. PT ON ROOM AIR. VSS. NO NEEDS AT THIS TIME.
--- NOTE | 2021-05-01 09:45 | NUR ---
3cc OF AIR REMOVED FROM Z BAND. NO BLEEDING/HEMATOMA NOTED. CALL LIGHT WITHIN REACH. VSS AT THIS TIME. NO NEEDS.
--- NOTE | 2021-05-01 10:00 | NUR ---
5cc OF AIR REMOVED FROM Z BAND. NO BLEEDING/HEMATOMA NOTED. CALL LIGHT WITHIN REACH. NO NEEDS AT THIS TIME.
--- NOTE | 2021-05-01 10:30 | NUR ---
Z BAND REMOVED AND DRESSING APPLIED. NO BLEEDING/HEMATOMA NOTED. PIV D/C'D WITH CATH TIP INTACT. TOLERATED WELL. PT INSTRUCTED TO GET UP AND DRESSED AT THIS TIME. VOIDED 550cc OF CLEAR YELLOW URINE IN URINAL. FAMILY AT BEDSIDE TO ASSIST.
--- NOTE | 2021-05-01 10:40 | NUR ---
DISCUSSED DISCHARGE INSTRUCTIONS WITH PT AND PT'S FAMILY. THEY VOICED UNDERSTANDING.
--- NOTE | 2021-05-01 10:50 | NUR ---
PT TAKEN OUT TO VEHICLE BY SHEELCHAIR. NO S/S OF DISTRESS NOTED. ALL BELONGINGS AND PAPERWORK IN HAND.
== END 2021-05-01 10:50 | disposition home or self-care (01) ==
LOC: D.CATH 06:34
PROVIDERS: ATTEND Internal Medicine Interventional Cardiology
DX: I20.9 Angina pectoris, unspecified (principal); I10 Essential (primary) hypertension; E78.5 Hyperlipidemia, unspecified; E11.9 Type 2 diabetes mellitus without complications; R07.9 Chest pain, unspecified; R94.39 Abnormal result of other cardiovascular function study